=== PATIENT | female | born 1990 | race African-American/Black ===

== ENCOUNTER 2024-01-02 19:35 | Emergency (ER) | payer OTHER ==
[2024-01-02 19:45] VITALS: BP 116/65; PULSE 76; RESP 18; TEMP 98.3; BMI 46.7
[2024-01-02] MEDS ORDERED: LIDOCAINE 4% PATCH TP ONE (20:07)
[2024-01-02] MEDS ORDERED: CYCLOBENZAPRINE HCL 10 MG TABLET (FP) ONE (20:08)
[2024-01-02] MEDS: LIDOCAINE 4% PATCH TP ONE (20:08)
[2024-01-02] MEDS ORDERED: IBUPROFEN 600 MG TABLET (FP) PO ONE (20:08)
[2024-01-02] MEDS: CYCLOBENZAPRINE HCL 10 MG TABLET (FP) PO ONE (20:09)
[2024-01-02] MEDS: IBUPROFEN 600 MG TABLET (FP) PO ONE (20:09)
[2024-01-02] MEDS ORDERED: LIDOCAINE PATCH REMOVAL MC SCH (22:00)
== END 2024-01-02 20:42 | disposition home or self-care (01) ==
LOC: JERFT 19:35
DX: M54.6 Pain in thoracic spine (principal); R07.9 Chest pain, unspecified
CPT/HCPCS: 71046-TC-FY; 93005; 93010; 99284-25

== ENCOUNTER 2024-02-20 18:17 | Emergency (ER) | payer OTHER ==
[2024-02-20 18:31] VITALS: BP 135/90; PULSE 90; RESP 18; TEMP 98; BMI 46.0
[2024-02-20] MEDS ORDERED: LIDOCAINE 4% PATCH TP ONE (20:44)
[2024-02-20] MEDS ORDERED: ACETAMINOPHEN 500 MG TABLET (FP) ONE (20:44)
[2024-02-20] MEDS: ACETAMINOPHEN 500 MG TABLET (FP) PO ONE (20:47)
[2024-02-20] MEDS: LIDOCAINE 4% PATCH TP ONE (20:48)
[2024-02-20 21:27] LABS: BASO % 0.8 % (0-2.0); EOS % 0.4 % (0-4.5); HEMATOCRIT 31.9 % (32.4-45.2); HEMOGLOBIN 10.3 GM/dL (10.7-15.3); LYMPH % 36.3 % (8-40); MCH 22.3 pg (25.7-33.7); MCHC 32.3 g/dl (32.0-36.0); MEAN CELL VOLUME 69.2 fl (80-96); MEAN PLT VOLUME 8.3 fl (7.5-11.1); MONO % 7.6 % (3.8-10.2); NEUT % 54.9 % (42.8-82.8); PLATELET COUNT 436 10^3/uL (134-434); RBC 4.61 M/mm3 (3.60-5.2); RDW 20.9 % (11.6-15.6)
[2024-02-20 21:33] LABS: ADD RBC MORPHOLOGY YES
[2024-02-20 21:46] LABS: POTASSIUM 4.1 mmol/L (3.5-5.1)
[2024-02-20 21:47] LABS: CALCIUM 8.7 mg/dL (8.5-10.1); INR 1.04 (0.83-1.09); PROTHROMBIN TIME (PATIENT) 11.9 SEC (9.7-13.0)
[2024-02-20 21:48] LABS: ALBUMIN 3.4 g/dl (3.4-5.0)
[2024-02-20 21:49] LABS: ACTIVATED PTT 31.2 SECONDS (25.2-36.5)
[2024-02-20 21:52] LABS: BILIRUBIN,TOTAL 0.2 mg/dL (0.2-1)
[2024-02-20 21:53] LABS: TOT PROT 7.7 g/dl (6.4-8.2)
[2024-02-20] MEDS ORDERED: KETOROLAC TROMETHAMINE 15 MG/ML VIAL ONE (22:08)
[2024-02-20] MEDS ORDERED: METHOCARBAMOL 500 MG TABLET ONE ×2 (22:08→22:16)
[2024-02-20] MEDS: METHOCARBAMOL 500 MG TABLET PO ONE (22:21)
[2024-02-20] MEDS: KETOROLAC TROMETHAMINE 15 MG/ML VIAL IVPUSH ONE (22:21)
[2024-02-20] MEDS: LACTATED RINGERS SOLUTION 1000 ML INFUS.BAG IV ONE (22:21)
[2024-02-20 22:55] LABS: ANISOCYTOSIS 0; MACROCYTOSIS 0; OVALOCYTE 1+
[2024-02-20 22:56] LABS: PLATELET ESTIMATE INCREASED
== END 2024-02-21 01:22 | disposition home or self-care (01) ==
LOC: JER 18:17
PROC: 3E0333Z Introduction of Anti-inflammatory into Peripheral Vein, Percutaneous Approach (ICD-10-PCS; principal; 2024-02-20)
DX: M79.602 Pain in left arm (principal); R20.2 Paresthesia of skin; R55 Syncope and collapse; M54.2 Cervicalgia; R42 Dizziness and giddiness
CPT/HCPCS: 36415; 71046-TC-FY; 80053; 84484; 84703; 85025; 85610; 85730; 93005; 93010; 93971; 99285-25

== ENCOUNTER 2024-07-30 17:54 | Emergency (ER) | payer OTHER ==
[2024-07-30 18:09] VITALS: BP 112/70; PULSE 84; RESP 18; TEMP 99.3; BMI 46.3
[2024-07-30] MEDS ORDERED: METOCLOPRAMIDE HCL INJECTION 10 MG/2 ML VIAL ONE (21:15)
[2024-07-30] MEDS: SODIUM CHLORIDE 0.9% 500 ML INFUS.BAG IV ONE (21:30)
[2024-07-30] MEDS: METOCLOPRAMIDE HCL INJECTION 10 MG/2 ML VIAL IVPUSH ONE (21:31)
[2024-07-30] MEDS ORDERED: KETOROLAC TROMETHAMINE 30 MG/1 ML VIAL ONE (23:00)
[2024-07-30] MEDS: KETOROLAC TROMETHAMINE 30 MG/1 ML VIAL IVPUSH ONE (23:07)
[2024-07-30 23:23] LABS: HCG,QUALITATIVE URINE Negative
[2024-07-30 23:24] LABS: EPI CELLS >36 /uL (0-25.1); HYALINE CASTS 0 /uL (0-3.1); PH,URINE 7.5 (5.0-8.0); URINE APPEARANCE CLEAR; URINE BACTERIA 1668 /uL (0-1359); URINE BILIRUBIN NEGATIVE (NEGATIVE); URINE COLOR YELLOW; URINE GLUCOSE (UA) NEGATIVE (NEGATIVE); URINE KETONE TRACE (NEGATIVE); URINE LEUK ESTERASE NEGATIVE (NEGATIVE); URINE NITRITE NEGATIVE (NEGATIVE); URINE PROTEIN TRACE (NEGATIVE); URINE RBC 196 /uL (0-23.9); URINE WBC 9 /uL (0-25.8)
== END 2024-07-30 23:54 | disposition home or self-care (01) ==
LOC: JER 17:54
PROC: 3E0333Z Introduction of Anti-inflammatory into Peripheral Vein, Percutaneous Approach (ICD-10-PCS; principal; 2024-07-30)
PROC: 3E033GC Introduction of Other Therapeutic Substance into Peripheral Vein, Percutaneous Approach (ICD-10-PCS; 2024-07-30)
DX: R51.9 Headache, unspecified (principal); G89.29 Other chronic pain; R53.83 Other fatigue; H53.149 Visual discomfort, unspecified; R11.0 Nausea; Z20.822 Contact with and (suspected) exposure to COVID-19
CPT/HCPCS: 0241U-QW; 70450-TC; 81003; 84703; 99284-25